=== PATIENT | male | born 2000 | race Two or more races ===

== ENCOUNTER 2022-02-03 06:43 | Emergency (ER) | payer SELFPAY ==
[~2022-02-03] VITALS: Ht 172.7 cm; Wt 73.0 kg
[2022-02-03 07:49] LABS: Urine Bacteria NONE SEEN /hpf (None Seen); Urine Blood 3+ /uL (Negative); Urine Budding Yeast MODERATE /hpf (None Seen); Urine Mucus FEW (None Seen); Urine Specific Gravity 1.027 (1.001-1.035); Urine WBC 16 /hpf (0 - 3)
[2022-02-03 07:57] LABS: Alcohol, Urine < 3.0 mg/dL (0-10); Amphetamine Screen, Urine NEGATIVE (NEGATIVE); Barbiturate Scree,Urine NEGATIVE (NEGATIVE); Benzodiazephine Screen, Urine NEGATIVE (NEGATIVE); Cannabinoid Screen, Urine NEGATIVE (NEGATIVE); Cocaine Screen, Urine NEGATIVE (NEGATIVE); Opiate Scree,Urine NEGATIVE (NEGATIVE); Phencyclidine Screen, Urine NEGATIVE (NEGATIVE)
[2022-02-03 08:00] VITALS: BP 147/94
[2022-02-03 08:42] LABS: Albumin 4.4 g/dL (3.4-5.0); Calcium 9.2 mg/dL (8.5-10.1); Potassium 3.6 mmol/L (3.5-5.1)
[2022-02-03 08:45] LABS: BUN/Creatinine Ratio 8.5; Bilirubin, Total 0.4 mg/dL (0.2-1.0); Total Protein 8.5 g/dL (6.4-8.2)
[2022-02-03] MEDS ORDERED: IBUP800T27 PO (08:48)
[2022-02-03 08:58] LABS: Hematocrit 46.8 % (41.0-53.0); Mean Corpuscular Hemoglobin 28.2 pg (28.0-32.0); Mean Corpuscular Hgb Conc. 34.1 g/dL (32.0-36.0); Mean Corpuscular Volume 82.7 fL (80.0-100.0); Red Blood Cells 5.66 10^6/uL (4.5-5.90); Red Cell Distribution Width 13.2 % (11.8-14.3); White Blood Cell 17.3 10^3/uL (4.4-10.8)
[2022-02-03 09:08] LABS: Basophils % (manual) 0 (0.0-2.0); Blast Cells 0; Eosinophils % (manual) 0 (0-7); Metamyelocytes % 0; Monocytes % (manual) 0 (0-12); Myelocytes % 0; Promyelocytes % 0; Reactive Lymphocytes 0
[2022-02-03] MEDS ORDERED: CIPR-173 PO (09:22)
[2022-02-03] MEDS ORDERED: TAM04C PO (09:22)
[2022-02-03] MEDS ORDERED: LIDOCAINE 1% HCL (LOCAL ANESTH.) INJ 20ML MDV ONE (09:28)
[2022-02-03] MEDS ORDERED: cefTRIAXone SOD 1,000 MG VL IM ONE (09:30)
[2022-02-03 09:33] LABS: Band Neutrophils % (manual) 1; Lymphocytes % (manual) 14 (10.0-50.0)
== END 2022-02-03 09:33 | disposition home or self-care (01) ==
LOC: ER 06:43 → EDBD 06:43 → ER 09:33
DX: N20.0 Calculus of kidney (principal); N39.0 Urinary tract infection, site not specified
CPT/HCPCS: 36415; 74176; 80053; 80307; 81001; 83690; 85007; 85027; 96372; 99284; J0696; J2001